=== PATIENT | male | born 1950 | race Caucasian/White ===

== ENCOUNTER 2019-01-09 11:37 | Emergency (ER) | payer OTHER ==
[2019-01-09 11:50] VITALS: BP 132/86; PULSE 82; TEMP 98.3; BMI 23.6
--- NOTE | 2019-01-09 12:28 | PDOC ---
History of Present Illness - General Chief Complaint: Loss of Appetite Stated Complaint: FAILURE TO THRIVE / DEHYDRATED Time Seen by Provider: 01/09/19 12:24 - History of Present Illness Initial Comments: 01/09/19 13:32 The patient is a 68 year old male with PMH of BPH who presents with a 2-3 week h /o weakness and decreased appetite. Endorses a 20 lb weight loss over the last few months. C/o of life stressors including taking care of his 90 year old mother. Expresses suicidal ideation without plan. The patient denies chest pain, abdominal pain, nausea/vomiting, diarrhea/ constipation, dysuria/hematuria, fevers/chills. Past History - Past Medical History Allergies/Adverse Reactions: Allergies Allergy/AdvReac Type Severity Reaction Status Date / Time No Known Allergies Allergy Verified 01/09/19 11:50 Home Medications: Ambulatory Orders Tamsulosin HCl [Flomax] 0.8 mg PO DAILY 01/09/19 COPD: No Disorders: Yes (BPH) - Suicide/Smoking/Psychosocial Hx Smoking History: Never smoked *Physical Exam - Vital Signs Last Vital Signs Temp Pulse Resp BP Pulse Ox 98.3 F 82 18 132/86 98 01/09/19 11:48 01/09/19 11:48 01/09/19 11:48 01/09/19 11:48 01/09/19 11:48 ED Treatment Course - LABORATORY CBC & Chemistry Diagram: 01/09/19 12:54 01/09/19 12:54 Medical Decision Making - Medical Decision Making 01/09/19 13:34 68 year old male with weakness and weight loss Denies chest pain, shortness of breath. Suicidal Ideation without plan 01/09/19 13:36 SW evaluated @ bedside 01/09/19 13:57 Case d/w Dr. Banuelos *DC/Admit/Observation/Transfer Diagnosis at time of Disposition: Elevated serum creatinine - Discharge Dispostion Disposition: HOME Condition at time of disposition: Fair Decision to Admit order: No - Referrals - Patient Instructions Printed Discharge Instructions: Leaving Loneliness Behind Additional Instructions: Follow up with your primary care doctor in the next 1 week. Please take a copy of your labs so he can monitor your kidney function. Return to Emergency Department for any new/worsening/concerning symptoms. - Post Discharge Activity
--- NOTE | 2019-01-09 12:53 | PDOC ---
Documentation entered by Lena Callejas SCRIBE, acting as scribe for Rosemary Fernandes MD. Rosemary Fernandes MD: This documentation has been prepared by the Britta ruvalcaba Adrianna, SCRIBE, under my direction and personally reviewed by me in its entirety. I confirm that the documentation accurately reflects all work, treatment, procedures, and medical decision making performed by me. Attending Attestation - Resident Resident Name: FredaMelanie - ED Attending Attestation I have performed the following: I have examined & evaluated the patient, The case was reviewed & discussed with the resident, I agree w/resident's findings & plan - HPI HPI: 01/09/19 13:50 68 y/o male, with a PMH of BPH, HTN, and HLD, who presents for weakness and decreased PO intake for 2-3 weeks. Patient notes he has been experiencing generalized weakness, with a loss in appetite. Patient reports a 20 pound weight loss at this time as well. When asked, patient does endorse passing thoughts of suicide but denies any attempt or plan. He notes he is stressed because he has been caring for his mother who is in her 90s, and does not have any friends, children, or support system. Patient states he feels like he needs help with his mom. - Physicial Exam PE: 01/09/19 13:51 Agree with the resident's HPI and PE as documented in the electronic medical record. NAD, well appearing, EOMI, PERRL, MMM, nl conjunctiva, anicteric; neck supple. lungs clear, RRR, abdomen soft nontender. Back nontender. SILVA x4, no focal neuro deficits. No peripheral edema. normal color for ethnicity, WWP. no active SI/plan. did admit to fleeting SI no paranoia or delusions or hallucinations. speech clear calm and cooperative. - Medical Decision Making EXAM#: TYPE/EXAM: RESULT: [id number] RAD/CHEST X-RAY PORTABLE* Chest: Cough. Impression no acute chest pathology. Reported By: Jace Dennis MD 01/09/19 13:50 See HPI for details. Prior notes reviewed, including admissions, discharges and consultations. Vital signs reviewed, wnl. laboratory results and imaging reviewed, basic labs and lytes wnl, notable for mild elevation of Cr 1.5,no prior, can have that f/u outpatient as no urinary issues and able to be hydrated given PO hydration. +potassium borderline low 3.2, given PO tablet Cardiac panel_neg, unlikely cardiac with timeline of sx EKG normal sinus rhythm, no interval abnormalities, narrow QRS, ST and T wave segments and morphology normal. ED course - psych cs with Dr Myers, given risk factors, fleeting SI, but no plan; there is risk for harm/SI so needs clearance - SW consult for coordination of care - no symptoms here, tolerating diet/food, ambulatory, neuro intact, no focal deficits/ 01/09/19 13:52 - seen by Dr Myers, psych cleared, med stable for discharge discharge in stable condition, eager for discharge and no acute changes in symptoms, unremarkable ED course. PCP followup for Cr function. dietary adjustments/modifications advised, supportive care, return precautions. safe for discharge. Heart Score/ECG Review #1 ECG reviewed & interpreted by me at: 12:45 General ECG Interpretation: Sinus Rhythm, Normal Rate, Normal Intervals Compared to previous ECG there are: Previous ECG unavail 01/09/19 12:51 EKG normal sinus rhythm at 67 bpm, normal intervals, narrow QRS, ST and T wave segments and morphology normal. no prior
[2019-01-09 13:07] LABS: BASO % 0.4 % (0-2.0); EOS % 1.1 % (0-4.5); HEMATOCRIT 38.1 % (35.4-49); HEMOGLOBIN 13.2 GM/dL (11.7-16.9); LYMPH % 25.6 % (8-40); MCH 31.9 pg (25.7-33.7); MCHC 34.7 g/dl (32.0-35.9); MEAN PLT VOLUME 9.7 fl (7.5-11.1); MONO % 8.5 % (3.8-10.2); NEUT % 64.4 % (42.8-82.8); PLATELET COUNT 164 K/MM3 (134-434); RBC 4.15 M/mm3 (4.00-5.60); RDW 14.1 % (11.9-15.9); WHITE BLOOD COUNT 6.3 K/mm3 (4.0-10.0)
[2019-01-09 13:38] LABS: URINE APPEARANCE CLEAR; URINE BILIRUBIN NEGATIVE (NEGATIVE); URINE COLOR YELLOW; URINE GLUCOSE (UA) NEGATIVE (NEGATIVE); URINE KETONE TRACE (NEGATIVE); URINE LEUK ESTERASE NEGATIVE (NEGATIVE); URINE NITRITE NEGATIVE (NEGATIVE); URINE PROTEIN TRACE (NEGATIVE)
[2019-01-09 13:41] LABS: ALK PHOS 48 U/L (45-117); ANION GAP 9 MMOL/L (8-16); BILIRUBIN,TOTAL 0.6 mg/dL (0.2-1); CALCIUM 9.5 mg/dL (8.5-10.1); CHLORIDE 102 mmol/L (98-107); CO2 29 mmol/L (21-32); CREATININE 1.5 mg/dL (0.55-1.3); GLUCOSE,RANDOM 78 mg/dL (74-106); MAGNESIUM 2.4 mg/dL (1.8-2.4); POTASSIUM 3.2 mmol/L (3.5-5.1); SGOT/AST 20 U/L (15-37); SGPT/ALT 34 U/L (13-61); SODIUM 140 mmol/L (136-145); TOT PROT 7.2 g/dl (6.4-8.2)
[2019-01-09] MEDS ORDERED: POTASSIUM CHLORIDE TABS 20 MEQ TABLET.ER (FP) PO ONE ×2 (13:49→13:55)
[2019-01-09] MEDS ORDERED: TAMSULOSIN HCL 0.4 MG CAP PO ONE (15:44)
[2019-01-09] MEDS ORDERED: TAMSULOSIN HCL 0.4 MG CAP ONE (15:46)
--- NOTE | 2019-01-09 15:48 | EKG ---
Test Reason : Blood Pressure : / mmHG Vent. Rate : 064 BPM Atrial Rate : 064 BPM P-R Int : 168 ms QRS Dur : 086 ms QT Int : 436 ms P-R-T Axes : 046 -05 026 degrees QTc Int : 449 ms POOR DATA QUALITY, INTERPRETATION MAY BE ADVERSELY AFFECTED NORMAL SINUS RHYTHM NORMAL ECG NO PREVIOUS ECGS AVAILABLE Confirmed by MD CHU, LAURA ([id number]) on 01/09/2019 3:48:02 PM Referred By: Confirmed By:LAURA SAGE MD
--- NOTE | 2019-01-09 16:29 | CON.PSY ---
Psychiatry Consult Chief Complaint: i never said I was suicidal, I have a cat and mom. i need to take care of them. I had a bad day at [facility] trying to get Medicaid for my MOM. I have nevert seen a Psych and I am not depressed. I was frustrated, thats all. - Previous Psychiatric Treatment Outpatient: None Inpatient: None - Previous Substance Abuse Treatment Outpatient: None Inpatient: None - Allergies Allergies: Allergies Allergy/AdvReac Type Severity Reaction Status Date / Time No Known Allergies Allergy Verified 01/09/19 11:50 - Current Living Status Usual Living Arrangement: Alone - Current Mental Status Evaluation Appearance: Well Groomed Attitude: Cooperative - Affect Affect: Full Range Appropriateness: Appropriate to Content - Mood Mood: Euthymic - Speech/Language Expressive: Coherent - Psychomotor Activity Psychomotor Activity: Normal - Thought Process Thought Process: Intact - Thought Content Hallucinations: Absent Delusions: Absent - Self Perception Self Perception: No Impairment - Cognition Attention: Alert Orientation: Time Memory, Immediate Recall: Intact Memory, Short Term: 3/3 Memory, Remote with Promptin/3 - Concentration Serial Sevens Intact: Yes Simple Calculations Intact: Yes - Abstraction Proverb Interpretation: Intact Judgement: Intact - Insight Insight: Intact - Impulse Control Impulse Control: Good Control - Suicidal Ideation Suicidal Ideation: No - Homicidal Ideation Homicidal Ideation: No Assessment/Plan 1) patient is not suicidal at this time. 2) can be discharged on his own volition when medically stable.
== END 2019-01-09 16:53 | disposition home or self-care (01) ==
LOC: JER 11:37
DX: R94.4 Abnormal results of kidney function studies (principal); R79.89 Other specified abnormal findings of blood chemistry; R53.1 Weakness; R63.4 Abnormal weight loss; Z68.23 Body mass index [BMI] 23.0-23.9, adult; E87.6 Hypokalemia
CPT/HCPCS: 36415; 71045-TC-FY; 80053; 81003; 83735; 84484; 85025; 87086; 93005; 93010; 99282-25